=== PATIENT | male | born 1965 | race Caucasian/White ===

== ENCOUNTER → 2018-08-15 | Day surgery (SDC) | payer OTHER ==
[~2018-08-15] MED LIST: ACETAMINOPHEN 1000 MG/100 ML IV ONE; AMLODIPINE-BEN1 EAC1 PO; BUPIVACAINE 0.5%/EPI 30 ML SDV INJ ONE; C-10001000 MG PO; CAL-MAG TABLET1 EACH PO; CEFAZOLIN SOD 2 GM/D5W 50ML 50 ML IV ONE; DEXAMETHASONE SOD PHOS INJ 4 MG/ML VIAL ONE; DHEA TABLET1 EACH PO; EPINEPHRINE HCL INJ 1 MG/ML AMP ONE; FENTANYL CITRATE/PF 100MCG/2 ML INJ ONE; FLOMAX0.4 MG PO; KETOROLAC TROMETHAMINE 30 MG/ML VIAL ONE; LIDOCAINE 2%/ EPINEPHRINE 20ML MDV ONE; LIDOCAINE HCL 2% LOCAL INJ 5 ML SDV VIAL INJ ONE; LIOTHYRONINE SO5 MCG PO; MEPERIDINE HCL INJ 25 MG/ML VIAL ONE; METOCLOPRAMIDE HCL 10 MG/2ML VIAL ONE; MIDAZOLAM HCL 2 MG/2 ML VIAL ONE; MYOCALM TABLET1 EACH PO; OMEGA 3 1,0001 EACH PO; ONDANSETRON HCL INJ 2 MG/ML VIAL ONE; OXYBUTYNIN CHLOR5 MG PO; PHENYLEPHRINE HCL 1% 10 MG/ML VIAL ONE; PROPOFOL IV EMULSION 10 MG/ML 20 ML VIAL ONE; ROCURONIUM BROMIDE 10 MG/ML 5ML VIAL ONE; ROPIVACAINE 0.5% 5 MG/ML 30 ML SDV ONE; SEVOFLURANE INHAL SOLN 250 ML PEN BTL ONE; SYNTHROID100 MCG PO; VASOPRESSIN INJ 20 UNIT/ML VIAL ONE
[2018-08-15 09:18] LABS: BASOPHILS # (AUTO) 0.1 (0.0-0.1); BASOPHILS % 0.9 % (0.0-1.0); EOSINOPHILS # (AUTO) 0.4 (0.0-0.4); EOSINOPHILS % 6.5 % (0.0-6.0); HEMATOCRIT 39.7 % (38.2-49.6); HEMOGLOBIN 11.3 g/dL (14.0-18.0); LYMPHOCYTES # (AUTO) 1.5 (1.0-3.2); MEAN CORPUSCULAR HEMOGLOBIN 19.3 pg (28-32); MEAN CORPUSCULAR HGB CONC 28.5 g/dL (31-35); MEAN CORPUSCULAR VOLUME 67.9 fL (81-99); MONOCYTES # (AUTO) 0.6 (0.2-0.8); MONOCYTES % 10.8 % (4.4-11.3); NEUTROPHILS # (AUTO) 2.9 (2.1-6.9); NEUTROPHILS % 53.6 % (38.7-80.0); PLATELET COUNT 203 x10e3/uL (140-360); RED BLOOD COUNT 5.85 x10e6/uL (4.3-5.7); RED CELL DISTRIBUTION WIDTH 19.1 % (11.7-14.4)
[2018-08-15 09:35] LABS: BLOOD UREA NITROGEN 12 mg/dL (7-26); BUN/CREATININE RATIO 10 (6-25); CALCIUM 9.7 mg/dL (8.4-10.2); CARBON DIOXIDE 25 mmol/L (22-29); CHLORIDE 104 mmol/L (98-107); CREATININE, SERUM 1.19 mg/dL (0.72-1.25); EST GLOMERULAR FILTRATION RATE > 60 ML/MIN (60-); GLUCOSE 91 mg/dL (74-118); SODIUM 138 mmol/L (136-145)
[2018-08-15 09:36] LABS: INR 0.95; PROTHROMBIN TIME 13.5 seconds (11.9-14.5)
[2018-08-15 09:37] LABS: PARTIAL THROMBOPLASTIN TIME 35.6 seconds (23.8-35.5)
[2018-08-15 10:25] LABS: EOSINOPHILS % (MANUAL) 6 % (0-7); LYMPHOCYTES % (MANUAL) 22 % (19-48); MONOCYTES % (MANUAL) 9 % (3.4-9.0); NEUTROPHILS % (MANUAL) 59 % (40-74)
[2018-08-15 10:26] LABS: ANISOCYTOSIS SLIGHT; PLATELET ESTIMATE ADEQUATE; PLATELET MORPHOLOGY COMMENT NORMAL; RBC MORPHOLOGY COMMENT NORMAL
[2018-08-15 16:30] VITALS: BP 118/67
--- NOTE | 2018-08-15 16:42 | NUR ---
Brief Operative Note - Orthopedics Date 08/15/2018 Time 4:38pm Pre-Op Diagnosis: Right Shoulder Subscapularis Tear, Subluxed Long Head of Biceps, Shoulder Impingement, and AC Arthrosis Post-Op Diagnosis: same Procedure: Right Shoulder Arthroscopic Subscapularis Repair, Supraspinatus Repair, Subacromial Decompression, Acromioplasty, Debridement, Distal Clavicle Excision and Subpectoral Biceps Tenodesis Surgeon: DO Samuel Assistants: Marine Anesthesia: General Endotracheal Anesthesia & Interscalene Block EBL: 20 Findings: Right Shoulder Subscapularis Repair, Near complete supraspinatus tear, Shoulder Impingement, Labral fraying and degeneration, AC Arthrosis and Subluxed Biceps Tendon Specimens: None Drains: None Complications: None Disposition: To Recovery Room, extubated, in stable condition
--- NOTE | 2018-08-15 17:13 | NUR ---
Operative Note - Orthopedics Date of surgery: 08/15/2018 Preoperative diagnosis: Right Shoulder Subscapularis Tear, Subluxed Long Head of Biceps, Shoulder Impingement, Acromioclavicular Arthrosis. Postoperative diagnosis: Right Shoulder Subscapularis Tear and Supraspinatus Tear, Subluxed Long Head of Biceps, Shoulder Impingement, Acromioclavicular Arthrosis, Labral Fraying Procedure performed: 1. Arthroscopic Rotator Cuff Repair (Subscapularis & Supraspinatus) 2. Arthroscopic subacromial decompression & acromioplasty 3. Arthroscopic distal clavicle excision 3. Extensive Debridement (labrum, subacromial bursa, rotator cuff) 4. Mini-Open Subpectoral Biceps Tenodesis Surgeon: Linda Baker DO Assist 1.: [place]orne Anesthesia #1 General #2 Regional block Complications: None Medial row anchors: Arthrex Corkscrew Subscapularis anchors: Arthrex Swivelock 4.75mm composite Biceps Tenodesis: Arthrex Biceps Button EBL: <20 cc Indications: Due to persistent pain and limitations on activity combined with findings on exam and imaging, the patient requests surgical treatment. Nonoperative care and alternative surgical options were reviewed. We agreed that this provided the best risk/benefit profile for this patient, understanding and accepting risks of recurrent//persistent symptoms, infection, bleeding, stiffness, neurological/vascular damage, failure to improve and anesthetic complication (as reviewed by anesthesia service). Findings: 1. Right Shoulder Subscapularis Tear 2l. Right Shoulder Rotator Cuff Supraspinatus Tear and tendinosis 3. Labral Fraying 4. Subluxed Long Head of Biceps 5. Shoulder Impingement 6. Acromioclavicular Arthrosis Procedure: After obtaining satisfactory general anesthesia, the patient was placed in the beachchair position with the head and neck in neutral position, prominences well padded and the eyes well protected. The upper extremity and shoulder girdle were prepped and draped in sterile fashion. Diagnostic arthroscopy was performed through a posterior portal with probing via a portal through the rotator interval. The above findings were noted. The labrum degenerative fragments, the extensive synovitis, subacromial bursa and fragmented rotator cuff tissue were all debrided to smooth/stable margins, working in multiple compartments. The unstable edges of the cuff tissue were debrided and the footprint freshened to punctate bleeding. The cuff was mobilized and trial reductions performed to determine the best reduction. The pattern of suture anchor placement and suture placement was determined. The anchors described above were placed and the sutures passed with antegrade and retrograde passers with the cataloging assistant shuttling sutures with me as appropriate while the scope was held by the. Care was taken to avoid the biceps. Arthroscopic knots were tied to create a stable repair while the scope was held by the cataloging assistant. All anchors were confirmed to be flush or slightly recessed in the bone. Reduction and stability were inspected and probed and found to be satisfactory. Acromioplasty was performed to plane the undersurface of the acromion excising the spur and detaching the CA ligament, creating a smooth undersurface. All debris evacuated. Distal clavicle resection was performed using electrocautery and a mayda to excise the distal 1 cm of the clavicle, inspecting from multiple portals to confirm resection. Bicep tenodesis was done using subpectoral technique with an Arthrex Biceps Button Incisions were closed with absorbable suture, a sterile dressing applied followed by a shoulder immobilizer. The patient was awakened and transferred to the PACU in stable condition having tolerated the procedure well.
--- NOTE | 2018-08-15 17:17 | NUR ---
Discharge Summary Date of Admission: 08/15/2018 Date of Discharge: 08/15/2018 Admitting Physican: Linda Baker DO Admitting Diagnoses: Right Shoulder Subscapularis Tear, Subluxed Long Head of Biceps, Shoulder Impingement, Acromioclavicular Arthrosis. Discharge Diagnoses: 1. Right Shoulder Subscapularis Tear 2l. Right Shoulder Rotator Cuff Supraspinatus Tear and tendinosis 3. Labral Fraying 4. Subluxed Long Head of Biceps 5. Shoulder Impingement 6. Acromioclavicular Arthrosis Procedures: 1. Arthroscopic Rotator Cuff Repair (Subscapularis & Supraspinatus) 2. Arthroscopic subacromial decompression & acromioplasty 3. Arthroscopic distal clavicle excision 3. Extensive Debridement (labrum, subacromial bursa, rotator cuff) 4. Mini-Open Subpectoral Biceps Tenodesis Hospital Course: The patient is a 53 year old male who was admitted with the above mentioned diagnoses and underwent the above mentioned procedure. The patient tolerated the procedure well and was discharged on 08/15/2018 at which time his pain was under control and vitals were stable. Discharge Activity: NWB RUE Discharge Meds: Home Meds and Narco for pain Diet: Regular Dispo: Home Followup: [address] Baker
== END | disposition home or self-care (01) ==
LOC: OR 08:35
PROVIDERS: ATTEND Orthopaedic Surgery
DX: M75.101 Unspecified rotator cuff tear or rupture of right shoulder, not specified as traumatic (principal); M65.811 Other synovitis and tenosynovitis, right shoulder; S46.111A Strain of muscle, fascia and tendon of long head of biceps, right arm, initial encounter; M75.41 Impingement syndrome of right shoulder; M19.011 Primary osteoarthritis, right shoulder; I10 Essential (primary) hypertension; E03.9 Hypothyroidism, unspecified; N40.0 Benign prostatic hyperplasia without lower urinary tract symptoms; R07.9 Chest pain, unspecified; R00.1 Bradycardia, unspecified; R33.9 Retention of urine, unspecified; X58.XXXA Exposure to other specified factors, initial encounter
CPT/HCPCS: 23430; 29823; 29824; 29826; 29827; 36415; 80048; 85025; 85610; 85730; 93005; C1713; J0131; J0171; J0690; J1100; J1885; J2001 ×2; J2175; J2250; J2370; J2405; J2704; J2765; J2795